=== PATIENT | male | born 1985 | race Caucasian/White ===

== ENCOUNTER 2016-12-02 16:04 | Emergency (ER) | payer OTHER ==
[2016-12-02] MEDS ORDERED: IPRATROPIUM-ALBUTEROL 3 ML NEB INHALATION STA (17:18)
--- NOTE | 2016-12-02 17:29 | ED ---
Back Pain HPI - General Chief Complaint: Back Pain/Injury Stated Complaint: Back Pain Time Seen by Provider: 12/02/16 16:56 Source: patient, RN notes reviewed, old records reviewed Limitations: no limitations - History of Present Illness Initial Comments: Patient is a 31-year-old male with chief complaint of increased thoracic back pain for the past 3 days. Patient has been significantly worse today. Patient states that due to this significant pain and also be short of breath. He states that the pain will radiate towards the right side of his back and shoulder, and behind his sternum. Patient reports pain is positional. He is a smoker, denies any previous history of heart disease. Patient does have positive family history of heart disease. Patient states that he has had no fever or chills. No nausea or vomiting or abdominal pain. No dysuria or diarrhea. - Related Data Home Medications Medication Instructions Recorded Confirmed Cyclobenzaprine [Flexeril] 10 mg PO DAILY PRN 12/02/16 12/02/16 Gabapentin 600 mg PO TID 12/02/16 12/02/16 Ibuprofen [Motrin] 400 mg PO Q6HR PRN 12/02/16 12/02/16 Lidocaine 5% Patch [Lidoderm] 1 patch TOPICAL DAILY 12/02/16 12/02/16 OXcarbazepine [Trileptal] 150 mg PO TID 12/02/16 12/02/16 Previous Rx's Medication Instructions Recorded Albuterol Inhaler [Ventolin Hfa 1 - 2 puff INHALATION Q6HR PRN #1 12/02/16 Inhaler] inhaler Cyclobenzaprine [Flexeril] 10 mg PO TID #15 tab 12/02/16 HYDROcodone/APAP 10-325MG [Boaz 1 tab PO Q6H PRN #15 tab 12/02/16 10-325] Allergies Allergy/AdvReac Type Severity Reaction Status Date / Time erythromycin base Allergy Unknown Verified 05/28/16 09:18 [From E-Mycin] Macrolide Antibiotics Allergy Unknown Verified 12/02/16 17:10 Childhood Penicillins Allergy Unknown Verified 12/02/16 17:10 Childhood Review of Systems ROS Statement: Those systems with pertinent positive or pertinent negative responses have been documented in the HPI. ROS Other: All systems not noted in ROS Statement are negative. Past Medical History Past Medical History: No Reported History Additional Past Medical History / Comment(s): chronic back pain History of Any Multi-Drug Resistant Organisms: None Reported Past Surgical History: Tonsillectomy Additional Past Surgical History / Comment(s): JAW SURGERY, WISDOM Past Psychological History: No Psychological Hx Reported Smoking Status: Current every day smoker Past Alcohol Use History: Heavy Past Drug Use History: Marijuana General Exam Limitations: no limitations General appearance: alert, in no apparent distress Head exam: Present: atraumatic, normocephalic, normal inspection Eye exam: Present: normal appearance, PERRL, EOMI. Absent: scleral icterus, conjunctival injection, periorbital swelling ENT exam: Present: normal exam, mucous membranes moist Neck exam: Present: normal inspection. Absent: tenderness, meningismus, lymphadenopathy Respiratory exam: Present: wheezes (bilateral wheezing, right is more prominent) . Absent: normal lung sounds bilaterally, respiratory distress, rales, rhonchi , stridor Cardiovascular Exam: Present: regular rate, normal rhythm, normal heart sounds. Absent: systolic murmur, diastolic murmur, rubs, gallop, clicks GI/Abdominal exam: Present: soft, normal bowel sounds. Absent: distended, tenderness, guarding, rebound, rigid Extremities exam: Present: normal inspection, full ROM, normal capillary refill. Absent: tenderness, pedal edema, joint swelling, calf tenderness Back exam: Present: normal inspection Neurological exam: Present: alert, oriented X3, CN II-XII intact Psychiatric exam: Present: normal affect, normal mood Skin exam: Present: warm, dry, intact, normal color. Absent: rash Course Vital Signs 12/02/16 12/02/16 12/02/16 16:18 17:33 17:43 Temperature 98.4 F Pulse Rate 88 88 88 Respiratory 20 Rate Blood Pressure 152/81 O2 Sat by Pulse 98 Oximetry 12/02/16 19:50 Temperature 98.0 F Pulse Rate 51 L Respiratory 16 Rate Blood Pressure 138/85 O2 Sat by Pulse 97 Oximetry Medical Decision Making - Medical Decision Making Patient is a 31-year-old male with chief complaint of increased thoracic back pain for the past 3 days. Patient has been significantly worse today. Patient states that due to this significant pain and also be short of breath. He states that the pain will radiate towards the right side of his back and shoulder, and behind his sternum. Patient lab work, CXR, and EKG are all within normal limits. Patient reports that his pain occurs with moving different posistions, likely being musculoskeletal. He does have a history of compression fracture of t6. Patient reports pain is improved after IV pain meds and fluids. Discussed that patient should follow up with orthopedic, and will be prescribed muscle relaxer and pain medication. REturn parameters discussesd. - Lab Data Result diagrams: 12/02/16 17:45 12/02/16 17:45 Lab Results 12/02/16 12/02/16 12/02/16 Range/Units 17:45 17:45 17:45 WBC 9.9 (3.8-10.6) k/uL RBC 4.94 (4.30-5.90) m/uL Hgb 16.4 (13.0-17.5) gm/dL Hct 48.3 (39.0-53.0) % MCV 97.8 (80.0-100.0) fL MCH 33.2 (25.0-35.0) pg MCHC 33.9 (31.0-37.0) g/dL RDW 12.5 (11.5-15.5) % Plt Count 251 (150-450) k/uL Neutrophils % 64 % Lymphocytes % 26 % Monocytes % 7 % Eosinophils % 2 % Basophils % 1 % Neutrophils # 6.3 (1.3-7.7) k/uL Lymphocytes # 2.5 (1.0-4.8) k/uL Monocytes # 0.7 (0-1.0) k/uL Eosinophils # 0.2 (0-0.7) k/uL Basophils # 0.1 (0-0.2) k/uL PT (9.0-12.0) sec INR (<1.1) APTT (22.0-30.0) sec D-Dimer (<0.60) mg/L FEU Sodium 142 (137-145) mmol/L Potassium 4.0 (3.5-5.1) mmol/L Chloride 106 (98-107) mmol/L Carbon Dioxide 27 (22-30) mmol/L Anion Gap 9 mmol/L BUN 10 (9-20) mg/dL Creatinine 0.82 (0.66-1.25) mg/dL Est GFR (MDRD) Af Amer >60 (>60 ml/min/1.73 sqM) Est GFR (MDRD) Non-Af >60 (>60 ml/min/1.73 sqM) Glucose 102 H (74-99) mg/dL Calcium 10.1 (8.4-10.2) mg/dL Magnesium 2.1 (1.6-2.3) mg/dL Total Bilirubin 0.6 (0.2-1.3) mg/dL AST 50 (17-59) U/L ALT 64 (21-72) U/L Alkaline Phosphatase 66 (38-126) U/L Total Creatine Kinase 178 H (55-170) U/L CK-MB (CK-2) 1.2 (0.0-2.4) ng/mL CK-MB (CK-2) Rel Index 0.7 Troponin I <0.012 (0.000-0.034) ng/mL Total Protein 7.5 (6.3-8.2) g/dL Albumin 4.8 (3.5-5.0) g/dL 12/02/16 Range/Units 17:45 WBC (3.8-10.6) k/uL RBC (4.30-5.90) m/uL Hgb (13.0-17.5) gm/dL Hct (39.0-53.0) % MCV (80.0-100.0) fL MCH (25.0-35.0) pg MCHC (31.0-37.0) g/dL RDW (11.5-15.5) % Plt Count (150-450) k/uL Neutrophils % % Lymphocytes % % Monocytes % % Eosinophils % % Basophils % % Neutrophils # (1.3-7.7) k/uL Lymphocytes # (1.0-4.8) k/uL Monocytes # (0-1.0) k/uL Eosinophils # (0-0.7) k/uL Basophils # (0-0.2) k/uL PT 10.4 (9.0-12.0) sec INR 1.0 (<1.1) APTT 25.6 (22.0-30.0) sec D-Dimer 0.20 (<0.60) mg/L FEU Sodium (137-145) mmol/L Potassium (3.5-5.1) mmol/L Chloride (98-107) mmol/L Carbon Dioxide (22-30) mmol/L Anion Gap mmol/L BUN (9-20) mg/dL Creatinine (0.66-1.25) mg/dL Est GFR (MDRD) Af Amer (>60 ml/min/1.73 sqM) Est GFR (MDRD) Non-Af (>60 ml/min/1.73 sqM) Glucose (74-99) mg/dL Calcium (8.4-10.2) mg/dL Magnesium (1.6-2.3) mg/dL Total Bilirubin (0.2-1.3) mg/dL AST (17-59) U/L ALT (21-72) U/L Alkaline Phosphatase (38-126) U/L Total Creatine Kinase (55-170) U/L CK-MB (CK-2) (0.0-2.4) ng/mL CK-MB (CK-2) Rel Index Troponin I (0.000-0.034) ng/mL Total Protein (6.3-8.2) g/dL Albumin (3.5-5.0) g/dL 12/02/16 17:51 EKG shows sinus bradycardia with sinus arrhythmia. Endocrine previous cerebral. MI interval 140 mg. QRS duration 102 ms. QT/QTc is 416/90. No evidence of ST elevation or T-wave inversion. No evidence of atrial or ventricular arrhythmias. - Radiology Data Radiology results: report reviewed CXR negative for any acute process. Thoracic spine xray shows degenerative changes on T6. Disposition Clinical Impression: Wheezing, Cigarette nicotine dependence, Thoracic back pain Disposition: HOME SELF-CARE Condition: Good Instructions: Back Pain (ED) Additional Instructions: Follow-up with primary care provider in 1-2 days. Take medications as prescribed. Use inhaler as needed for shortness of breath. Return to the emergency department if any alarming signs or symptoms occur. Prescriptions: Albuterol Inhaler [Ventolin Hfa Inhaler] 1 - 2 puff INHALATION Q6HR PRN #1 inhaler PRN Reason: Pain Cyclobenzaprine [Flexeril] 10 mg PO TID #15 tab HYDROcodone/APAP 10-325MG [Boaz 10-325] 1 tab PO Q6H PRN #15 tab PRN Reason: Pain Referrals: Madhuri Lebron MD [Primary Care Provider] - 1-2 days Time of Disposition: 19:39
[2016-12-02] MEDS ORDERED: MORPHINE SULFATE 4 MG/ML SYRINGE IVP STA (17:45)
[2016-12-02 18:22] LABS: Basophils # (A) 0.1 k/uL (0-0.2); Basophils % (A) 1 %; CH 34.1; Eosinophils # (A) 0.2 k/uL (0-0.7); Eosinophils % (A) 2 %; HCT 48.3 % (39.0-53.0); HGB 16.4 gm/dL (13.0-17.5); Luc % (Auto) 2; Lymphocytes # (A) 2.5 k/uL (1.0-4.8); Lymphocytes % (A) 26 %; MCH 33.2 pg (25.0-35.0); MCHC 33.9 g/dL (31.0-37.0); MCV 97.8 fL (80.0-100.0); Mean Platelet Volume 7.7; Monocytes # (A) 0.7 k/uL (0-1.0); Monocytes % (A) 7 %; Neutrophils # (A) 6.3 k/uL (1.3-7.7); Neutrophils % (A) 64 %; RBC 4.94 m/uL (4.30-5.90); RDW 12.5 % (11.5-15.5); WBC 9.9 k/uL (3.8-10.6); WBC (Perox) 9.83
[2016-12-02 18:41] LABS: ALT 64 U/L (21-72); AST 50 U/L (17-59); Alkaline Phosphatase 66 U/L (38-126); Anion Gap 9 mmol/L; Blood Urea Nitrogen 10 mg/dL (9-20); Calcium 10.1 mg/dL (8.4-10.2); Carbon Dioxide 27 mmol/L (22-30); Chloride 106 mmol/L (98-107); Glucose 102 mg/dL (74-99); Magnesium 2.1 mg/dL (1.6-2.3); Non-African American GFR(MDRD) >60 (>60 ml/min/1.73 sqM); Sodium 142 mmol/L (137-145); Total Bilirubin 0.6 mg/dL (0.2-1.3); Total Protein 7.5 g/dL (6.3-8.2)
[2016-12-02 18:42] LABS: Creatine Kinase 178 U/L (55-170); Prothrombin Time 10.4 sec (9.0-12.0)
[2016-12-02 18:43] LABS: Partial Thromboplastin Time 25.6 sec (22.0-30.0)
--- NOTE | 2016-12-02 18:43 | XR ---
EXAMINATION TYPE: XR chest 2V DATE OF EXAM: 12/02/2016 6:36 PM COMPARISON: NONE INDICATION: Short of breath, back pain TECHNIQUE: Single frontal view of the chest is obtained. FINDINGS: The heart size is normal. The pulmonary vasculature is normal. The lungs are clear. IMPRESSION: 1. No acute pulmonary process.
--- NOTE | 2016-12-02 18:45 | XR ---
EXAMINATION TYPE: XR thoracic spine 2V DATE OF EXAM: 12/02/2016 6:36 PM COMPARISON: 07/27/2013 HISTORY: Pain short of breath TECHNIQUE: 3 view thoracic spine FINDINGS: There are 12 thoracic type vertebral bodies. Pedicles are intact. Disc heights are preserve d. The T4 and T6 compression deformities are poorly visualized. The superior endplate of T6 does have some subtle superior endplate change. This appears stable from comparison. IMPRESSION: 1. No acute changes thoracic spine.
[2016-12-02 18:54] LABS: Creatine Kinase MB 1.2 ng/mL (0.0-2.4); Troponin I <0.012 ng/mL (0.000-0.034)
[2016-12-02 19:51] VITALS: BP 138/85; PULSE 51; RESP 16; TEMP 98
== END 2016-12-02 20:10 | disposition home or self-care (01) ==
LOC: EC 16:04
DX: M54.6 Pain in thoracic spine (principal); R06.2 Wheezing; F17.210 Nicotine dependence, cigarettes, uncomplicated; Z79.899 Other long term (current) drug therapy; Z88.0 Allergy status to penicillin; Z88.1 Allergy status to other antibiotic agents
CPT/HCPCS: 36415; 94640; 93005; 85379; 80053; 82550; 82553; 83735; 84484; 85025; 85610; 85730; 72070; 71020; 99284; 96374; J2270